=== PATIENT | male | born 1960 | race African-American/Black ===

== ENCOUNTER 2024-10-10 16:02 | Inpatient (IN) | payer OTHER ==
[2024-10-10 16:47] VITALS: BMI 25.7
[2024-10-10] MEDS ORDERED: MAG HYDROX/AL HYDROX/SIMETH 30 ML UNIT-DOSE CUP PO PRN (20:32)
[2024-10-10] MEDS ORDERED: POLYETHYLENE GLYCOL (HEALTHYLAX) 3350 17 GM PACKET PO PRN (20:32)
[2024-10-10] MEDS ORDERED: BISACODYL 5 MG TABLET.DR (FP) PO PRN (20:32)
[2024-10-10] MEDS ORDERED: ACETAMINOPHEN 325 MG TABLET (FP) PO PRN (20:32)
[2024-10-10] MEDS ORDERED: NICOTINE POLACRILEX 2 MG GUM BUC PRN (20:32)
[2024-10-10] MEDS ORDERED: IBUPROFEN 600 MG TABLET (FP) PO PRN (20:32)
[2024-10-10] MEDS ORDERED: guaiFENesin 600 MG TABLET.ER (FP) PO PRN (20:32)
[2024-10-10] MEDS ORDERED: BENZONATATE 200 MG CAPSULE PO PRN (20:32)
[2024-10-10] MEDS ORDERED: MAGNESIUM HYDROX 2400MG/30ML ORAL SUSPENSION 30 ML CUP PO PRN (20:32)
[2024-10-10] MEDS ORDERED: NALOXONE (NARCAN) HCL 4 MG/0.1 ML SPRAY NS PRN (20:32)
[2024-10-10] MEDS ORDERED: DOCUSATE SODIUM 100 MG CAPSULE (FP) PO PRN (20:32)
[2024-10-10] MEDS ORDERED: NICOTINE POLACRILEX 2 MG LOZENGE BC PRN (20:32)
[2024-10-10] MEDS ORDERED: IBUPROFEN 400 MG TABLET (FP) PO PRN (20:32)
[2024-10-10] MEDS ORDERED: LOPERAMIDE HCL 2 MG CAPSULE PO PRN (20:32)
[2024-10-10] MEDS ORDERED: BENZOCAINE/MENTHOL (CHLORASEPTIC ) LOZENGE MM PRN (20:32)
[2024-10-10] MEDS ORDERED: amLODIPine BESYLATE 5 MG TABLET (FP) ONE (21:17)
[2024-10-10] MEDS ORDERED: ASPIRIN 81 MG CHEWABLE TABLETS ONE (21:18)
[2024-10-10] MEDS ORDERED: MELATONIN 5 MG TABLETS ONE (21:18)
[2024-10-10] MEDS: ASPIRIN COATED 81 MG TABLET.EC PO SCH (21:20)
[2024-10-10] MEDS: amLODIPine BESYLATE 5 MG TABLET (FP) PO ONE (21:20)
[2024-10-10] MEDS: MELATONIN 5 MG TABLETS PO SCH (21:43)
[2024-10-10] MEDS: THIAMINE 100 MG TABLET PO SCH (21:43)
[2024-10-11] MEDS ORDERED: TUBERCULIN PPD 5 TU/0.1ML VIAL ID ONE (10:12)
[2024-10-11] MEDS: PRENATAL VITAMINS W/ FOLIC ACID TABLET (FP) PO SCH (10:15)
[2024-10-11] MEDS: TUBERCULIN PPD 5 TU/0.1ML SYRINGE (IN PATIENT USE ONLY) ID ONE (10:15)
[2024-10-11 11:08] LABS: HEMATOCRIT 37.6 % (35.4-49); HEMOGLOBIN 12.5 GM/dL (11.7-16.9); MCH 28.9 pg (25.7-33.7); MCHC 33.2 g/dl (32.0-35.9); MEAN CELL VOLUME 87.2 fl (80-96); MEAN PLT VOLUME 7.7 fl (7.5-11.1); PLATELET COUNT 235 10^3/uL (134-434); RBC 4.31 M/mm3 (4.00-5.60); RDW 14.4 % (11.9-15.9); WHITE BLOOD COUNT 4.3 K/mm3 (4.0-10.0)
[2024-10-11 11:19] LABS: CHLORIDE 109 mmol/L (98-107); SODIUM 142 mmol/L (136-145)
[2024-10-11 11:24] LABS: CALCIUM 8.8 mg/dL (8.5-10.1)
[2024-10-11 11:25] LABS: ALBUMIN 3.3 g/dl (3.4-5.0); ANION GAP 4 mmol/L (4-13); BLOOD UREA NITROGEN 16.3 mg/dL (7-18); CO2 30 mmol/L (21-32); GLUCOSE,RANDOM 158 mg/dL (74-106)
[2024-10-11 11:27] LABS: SGOT/AST 14 U/L (15-37); SGPT/ALT 18 U/L (13-61)
[2024-10-11 11:28] LABS: CREATININE 1.1 mg/dL (0.55-1.3)
[2024-10-11 11:29] LABS: BILIRUBIN,TOTAL 0.3 mg/dL (0.2-1); TOT PROT 6.8 g/dl (6.4-8.2)
[2024-10-11 11:30] LABS: ALK PHOS 124 U/L (45-117)
[2024-10-14 19:07] LABS: EPI CELLS 10 /uL (0-25.1); HYALINE CASTS 1 /uL (0-3.1); PH,URINE 6.5 (5.0-8.0); URINE APPEARANCE CLEAR; URINE BACTERIA 505 /uL (0-1359); URINE BILIRUBIN NEGATIVE (NEGATIVE); URINE COLOR YELLOW; URINE GLUCOSE (UA) NEGATIVE (NEGATIVE); URINE KETONE NEGATIVE (NEGATIVE); URINE LEUK ESTERASE 1+ (NEGATIVE); URINE NITRITE NEGATIVE (NEGATIVE); URINE PROTEIN NEGATIVE (NEGATIVE); URINE RBC 11 /uL (0-23.9); URINE WBC 100 /uL (0-25.8)
[2024-10-15] MEDS ORDERED: TETRAHYDROZOLINE HCL EYE DROPS OS PRN (18:30)
[2024-10-15] MEDS: amLODIPine BESYLATE 5 MG TABLET (FP) PO ONE (19:11)
[2024-10-15] MEDS: P-EPHED 60MG/TRIPROLIDI 2.5MG TABLET PO PRN (20:19)
[2024-10-16 21:47] LABS: EPI CELLS 13 /uL (0-25.1); HYALINE CASTS 0 /uL (0-3.1); PH,URINE 7.5 (5.0-8.0); URINE APPEARANCE CLEAR; URINE BILIRUBIN NEGATIVE (NEGATIVE); URINE COLOR YELLOW; URINE GLUCOSE (UA) NEGATIVE (NEGATIVE); URINE KETONE NEGATIVE (NEGATIVE); URINE LEUK ESTERASE TRACE (NEGATIVE); URINE NITRITE POSITIVE (NEGATIVE); URINE PROTEIN NEGATIVE (NEGATIVE); URINE RBC 9 /uL (0-23.9); URINE UROBILINOGEN 0.2 mg/dL (0.2-1.0)
[2024-10-16 22:12] VITALS: RESP 18; TEMP 98
[2024-10-17 00:15] LABS: URINE BACTERIA 275.8 /uL (0-1359)
[2024-10-17 09:22] VITALS: BP 143/69; PULSE 67
== END 2024-10-17 15:42 | disposition home or self-care (01) | DRG 774 ==
LOC: YASAS 16:02 → Y5N 21:14
PROVIDERS: ADMIT Psychiatry & Neurology Pain Medicine; ATTEND Psychiatry & Neurology Pain Medicine
PROC: HZ42ZZZ Group Counseling for Substance Abuse Treatment, Cognitive-Behavioral (ICD-10-PCS; principal; 2024-10-10)
DX: F14.10 Cocaine abuse, uncomplicated (principal); F12.10 Cannabis abuse, uncomplicated; F17.210 Nicotine dependence, cigarettes, uncomplicated; F20.9 Schizophrenia, unspecified; I10 Essential (primary) hypertension; N39.0 Urinary tract infection, site not specified; B30.9 Viral conjunctivitis, unspecified; R19.7 Diarrhea, unspecified; R26.89 Other abnormalities of gait and mobility; R29.6 Repeated falls; R15.9 Full incontinence of feces; R32 Unspecified urinary incontinence; Z99.89 Dependence on other enabling machines and devices
CPT/HCPCS: 36415; 80053; 80305; 80307; 81003; 82140; 82962; 83036; 85027; 86780; 86803; 87086; 87811; 93005; 93010